=== PATIENT | female | born 1975 | race Caucasian/White ===

== ENCOUNTER 2017-01-18 17:49 | Emergency (ER) | payer OTHER ==
--- NOTE | ~2017-01-18 | US85 ---
[facility] A Service of [facility] [place] RADIOLOGY TEXT RESULTS PATIENT: GAY GOODSON LOCATION: SED : 75 UNIT #: [id number] AGE: [address]: DAVIDSON LARSEN SEX: F ORDER DR: [id number] [place] [id number] E MR#: [id number] Acc #: [id number] NAME: GAY GOODSON : 1975 SEX: F STUDY DATE/TIME: 01/18/2017 19:15 UNIT: SED ROOM: STUDY [place] [facility] [place] [employer] [place] Attending Physician: Davidson Larsen Aprn Ordering Physician: Davidson Larsen Aprn Primary Care Physician: No Primary Care Physician MEDICAL IMAGING REPORT This report is preliminary unless electronic signature is present. EXAM Right lower extremity venous duplex ultrasound. DATE OF EXAM 01/18/2017 HISTORY 41-year-old female with right lower extremity pain and swelling for 5 days. COMPARISON None. FINDINGS Real time calabrese-scale, color Doppler, spectral Doppler analysis of the right lower extremity deep venous system demonstrates normal venous waveforms with normal compressibility and augmentation throughout. No evidence of right lower extremity deep venous thrombosis. IMPRESSION Negative for right lower extremity DVT. Dictated by... Bronson Shahid M.D. THIS IS AN ELECTRONICALLY VERIFIED REPORT Bronson Shahid M.D. at 01/22/2017 7:47 AM REJI/toro TD: 01/19/2017 01:33 JOB #: [id number] MEDICAL IMAGING REPORT [facility] A Service of [facility] [place] RADIOLOGY TEXT RESULTS PATIENT: GAY GOODSON LOCATION: SED : 75 UNIT #: [id number] AGE: [address]: DAVIDSON LARSEN SEX: F ORDER DR: Page 1 of 1
--- NOTE | ~2017-01-18 | EKG ---
PATIENT: GAY GOODSON UNIT #: [id number] Ventricular Rate: 73 BPM Atrial Rate: 73 BPM P-R Interval: 170 ms QRS Duration: 84 ms Q-T Interval: 400 ms QTC Calculation(Bezet): 440 ms P Mcleod: 62 degrees Calculated R Mcleod: 75 degrees Calculated T Mcleod: 69 degrees Diagnosis Line: Normal sinus rhythm Diagnosis Line: T wave abnormality, consider anterior ischemia Diagnosis Line: Abnormal ECG Diagnosis Line: No previous ECGs available Diagnosis Line: Confirmed by SHWETA GUNDERSON MD ([id number]) on 01/19/2017 Diagnosis Line: 8:05:24 PM INTERPRETING MD: NEPTALI BARAHONA
--- NOTE | ~2017-01-18 | CT16 ---
[facility] A Service of [facility] RADIOLOGY TEXT RESULTS PATIENT: GAY GOODSON LOCATION: SED : 75 UNIT #: [id number] AGE: [address]: DAVIDSON LARSEN SEX: F ORDER DR: [id number] [address] [address] [id number] E MR#: [id number] Acc #: [id number] NAME: GAY GOODSON : 1975 SEX: F STUDY DATE/TIME: 01/18/2017 19:19 UNIT: SED ROOM: STUDY DESCRIPTION: CT Angio Chest for PE Attending Physician: Davidson Larsen Aprn Ordering Physician: Davidson Larsen Aprn Primary Care Physician: Cherelle Primary Care Physician MEDICAL IMAGING REPORT This report is preliminary unless electronic signature is present. EXAM CT angiogram chest with IV contrast HISTORY Right leg pain and swelling and shortness of air for [address] exam was performed with one or more of the following radiation dose reduction techniques: automatic control, adjustment of mA and/or kV according to patient size, and iterative reconstruction. FINDINGS IV contrast enhanced CT angiogram of the chest was performed with 3-D reconstructions. Minimal linear atelectasis or scarring in the anterior left upper lobe, in the medial right middle lobe and in the anterior and posterior right lower lobe. No airspace infiltrates. No pleural effusions. Thyroidectomy. No adenopathy. Incidental calcified left hilar and mediastinal nodes, and calcified granuloma in the anterior left upper lobe. No central pulmonary embolus. The mid and peripheral pulmonary arteries are insufficiently opacified due to contrast bolus timing, limiting sensitivity, but no peripheral pulmonary emboli are identified. Fatty infiltration of the liver. Cholecystectomy. IMPRESSION 1. No pulmonary embolus is identified. Sensitivity is limited by suboptimal IV contrast bolus timing and limited contrast opacification of the pulmonary arteries. 2. No evidence of active disease in the lungs. 3. Mild multifocal linear atelectasis or scarring. 4. Incidental granulomatous calcifications. [facility] A Service of [facility] RADIOLOGY TEXT RESULTS PATIENT: GAY GOODSON LOCATION: SED : 75 UNIT #: [id number] AGE: [address]: DAVIDSON LARSEN SEX: F ORDER DR: 5. Fatty infiltration of the liver. Dictated by... Juan M Hernández M.D. THIS IS AN ELECTRONICALLY VERIFIED REPORT Juan M Hernández M.D. at 01/19/2017 11:30 PM DFL/warren TD: 01/19/2017 01:37 JOB #: [id number] MEDICAL IMAGING REPORT Page 1 of 1
[2017-01-18] MEDS ORDERED: LOPRESSOR PO (18:14)
[2017-01-18] MEDS ORDERED: ZOLOFT100 MG PO (18:15)
[2017-01-18] MEDS ORDERED: NEURONTIN300 MG PO (18:16)
[2017-01-18] MEDS ORDERED: RANITIDINE HCL300 M1 (18:17)
[2017-01-18] MEDS ORDERED: LEVOTHYROXINE150 MC1 PO (18:17)
[2017-01-18] MEDS ORDERED: ATORVASTATIN CA80 MG PO (18:18)
[2017-01-18] MEDS ORDERED: CLIMARA 0.050.05 MG TD (18:19)
[2017-01-18] MEDS ORDERED: SEROQUEL400 MG PO (18:19)
[2017-01-18] MEDS ORDERED: VITAMIN D250000 UNIT PO (18:20)
[2017-01-18 18:45] LABS: BASOPHIL# 0.1 X10e3 (0-0.3); BASOPHIL% 1.3 % (0-2.5); EOSINOPHIL# 0.2 X10e3 (0-0.7); HEMATOCRIT 39.4 % (35.0-45.0); HEMOGLOBIN 13.1 gm/dL (12.0-16.0); LYMPHOCYTE# 2.8 X10e3 (1.0-3.5); LYMPHOCYTE% 33.3 % (17.0-45.0); MEAN CELL VOLUME 85.8 FL (83-96); MEAN CORPUSCULAR HEMOGLOBIN 28.4 PG (28-34); MEAN CORPUSCULAR HGB CONC 33.1 g/dL (30-36); MEAN PLATELET VOLUME 9.6 FL (6.5-11.5); MONOCYTE# 0.4 X10e3 (0-1.0); NEUTROPHIL# 4.8 X10e3 (1.5-7.1); NEUTROPHIL% 57.4 % (40-75); PLATELET COUNT 232 X10e3 (140-420); RED CELL DISTRIBUTION WIDTH 17.4 % (11.0-15.5); WHITE BLOOD COUNT 8.3 X10e3 (4.0-10.5)
[2017-01-18 18:46] LABS: DIFF IND NO
[2017-01-18 18:56] LABS: PROTHROMBIN TIME (PATIENT) 10.9 SECONDS (9.5-12.4)
[2017-01-18 19:04] LABS: ALBUMIN SERUM 4.7 g/dL (3.5-5.0); BILIRUBIN,TOTAL 0.3 mg/dL (0.2-2.0); BUN/CREATININE RATIO 16.36; CALCIUM SERUM 9.8 mg/dL (8.4-10.2); CREATININE SERUM 1.1 mg/dL (0.6-1.4); GLOM FILT RATE Estimated 62.3 mL/min (>60); PARTIAL THROMBOPLASTIN TIME 35.6 SECONDS (25.6-38.1); POTASSIUM 3.7 mmol/L (3.5-5.1); PROTEIN TOTAL SERUM 8.4 g/dL (6.0-8.3)
[2017-01-18 19:05] LABS: POC - CKMB <1.0 ng/mL (0.0-7.9); POC - TROPONIN <0.05 ng/mL (<=0.05)
[2017-01-18 20:17] LABS: POC - TROPONIN <0.05 ng/mL (<=0.05)
== END 2017-01-18 21:01 | disposition home or self-care (01) ==
LOC: SED 17:49
PROVIDERS: Nurse Practitioner Family
DX: R00.2 Palpitations (principal); M79.671 Pain in right foot; Z88.0 Allergy status to penicillin; Z88.5 Allergy status to narcotic agent; Z91.040 Latex allergy status
CPT/HCPCS: 36415; 71275; 80053; 82553; 84443; 84484; 85025; 85610; 85730; 93005; 93971; 96374; 96375; 99284; J1885; J2270; Q9967